=== PATIENT | female | born 1975 | race Caucasian/White ===

== ENCOUNTER 2023-01-17 18:36 | Emergency (ER) | payer MEDICAID, SELFPAY ==
[2023-01-17 18:47] VITALS: BP 118/99; PULSE 89; RESP 18; TEMP 36.8; O2SAT 99
--- NOTE | 2023-01-17 18:48 | ED_ITS ---
HPI - General Adult General Chief complaint: Wound/Laceration <Wesly Bateman - Last Filed: 01/17/23 18:49> Stated complaint: laceration left hand <Wesly Bateman - Last Filed: 01/17/23 18:49> Time Seen by Provider: 01/17/23 21:06 <Wesly Bateman - Last Filed: 01/17/23 18:49> Source: patient <ELIA Monge Last Filed: 01/18/23 01:38> Mode of arrival: ambulatory <ELIA oMnge - Last Filed: 01/18/23 01:38> Limitations: no limitations <ELIA Monge Last Filed: 01/18/23 01:38> History of Present Illness HPI narrative: 47 yold female presents to the ED for left hand laceration since yesterday. patient states she cut hand with a knife while cooking. Patient denies any numbness, tingling, or paralysis of extremity thumb. patient unknown when last she had tetanus. <ELIA Monge Last Filed: 01/18/23 01:38> Related Data Allergies/adverse reactions: Allergies Allergy/AdvReac Type Severity Reaction Status Date / Time No Known Allergies Allergy Unverified 05/29/20 19:43 [No Known Allergies*] <Wesly Bateman - Last Filed: 01/17/23 18:49> Review of Systems Review of Systems: left hand laceration <ELIA Monge Last Filed: 01/18/23 01:38> Yes all other systems are reviewed and are negative <ELIA Monge Last Filed: 01/18/23 01:38> FOR[facility]LY [facility] Social History Social History: Social History Advance Directives: No Advance Directives Information Provided: No <Wesly Campos Last Filed: 01/17/23 18:49> Physical Exam ED Vital Signs: Vital Signs - 24 hr 01/17/23 18:47 Temperature 98.3 F Pulse Rate 89 Respiratory Rate 18 Blood Pressure 118/99 H Pulse Oximetry 99 Oxygen Delivery Method Room Air BMI result Body Mass Index 30.0 <Wesly Bateman - Last Filed: 01/17/23 18:49> Vital Signs - 24 hr 01/17/23 18:47 Temperature 98.3 F Pulse Rate 89 Respiratory Rate 18 Blood Pressure 118/99 H Pulse Oximetry 99 Oxygen Delivery Method Room Air BMI result Body Mass Index 30.0 <ELIA Monge Last Filed: 01/18/23 01:38> Const General: cooperative, healthy appearing, comfortable, no acute distress, well developed, alert, awake and Physically active <ELIA Monge Andres Last Filed: 01/18/23 01:38> Orientation/consciousness: oriented to person, oriented to place, oriented to time and patient oriented x3 <ELIA Monge Andres Last Filed: 01/18/23 01:38> HENMT Head: Yes normal to inspection, Yes No palpable skull fracture present, Yes normocephalic, Yes atraumatic and No abrasion <ELIA Monge Last Filed: 01/18/23 01:38> Eyes General: appearance normal, both eyes and all related structures <ELIA Monge Andres Last Filed: 01/18/23 01:38> Neck Neck: Yes normal visual inspection, Yes full ROM, Yes no lymphadenopathy, Yes no meningeal signs, Yes trachea midline, Yes supple, No anterior neck swelling and No tender <ELIA Monge Andres Last Filed: 01/18/23 01:38> Chest Chest palpation & inspection: normal inspection of the chest and normal palpation of entire chest wall <ELIA Monge Andres Last Filed: 01/18/23 01:38> Resp Effort & Inspection: normal respiratory effort and able to speak in complete sentences <ELIA Monge Andres Filed: 01/18/23 01:38> Auscultation: clear to auscultation bilaterally <ELIA Monge Andres Last Filed: 01/18/23 01:38> Cardio Jugular venous distension: no JVD <ELIA Monge Last Filed: 01/18/23 01:38> Heart sounds: S1 normal heart sound present and S2 normal heart sound present <ELIA Monge Andres Last Filed: 01/18/23 01:38> GI Inspection: Yes normal to inspection and No abdominal wall ecchymosis <ELIA Monge Andres Last Filed: 01/18/23 01:38> Palpation (GI): Soft to palpation, not firm, nontender, no guarding and not rigid <ELIA Monge Last Filed: 01/18/23 01:38> General: No CVA tenderness and Yes no CVA tenderness <ELIA Monge Last Filed: 01/18/23 01:38> Back/Spine/Pelvis Back: no CVA tenderness, No CVA tenderness and No back tenderness <ELIA Monge Last Filed: 01/18/23 01:38> Skin General skin exam: no rashes or lesions noted and elasticity normal <ELIA Monge Last Filed: 01/18/23 01:38> Neuro General: oriented to person, oriented to place, oriented to time, patient oriented x3, gait normal, tone normal, moves all extremities, Normal light touch and pain sensation, no meningeal signs, no focal motor deficits, CN's II-XI intact bilaterally and normal sensation to monofilament <ELAI Monge Last Filed: 01/18/23 01:38> Extrem General: Yes normal to inspection and Yes full ROM <ELIA Monge Last Filed: 01/18/23 01:38> Hand/finger images: 1. small laceration. patient has complete range of motion of all fingers. capillary refill intact of all fingers. motor, neuro, and vascular exam of extremity is intact. negative for signs of nerve or tendon injury <Wesly Bateman - Last Filed: 01/17/23 18:49> 1. small laceration. patient has complete range of motion of all fingers. capillary refill intact of all fingers. motor, neuro, and vascular exam of extremity is intact. negative for signs of nerve or tendon injury <ELIA Monge Last Filed: 01/18/23 01:38> Psych Appearance: grossly normal, well kempt and not disheveled <ELIA Monge Last Filed: 01/18/23 01:38> Course Course Course Narrative: 47 year old female presents for evaluation of a curvilinear your left hand laceration approximately 2 cm full-thickness <Wesly Bateman - Last Filed: 01/17/23 18:49> Reevaluation(s) Reevaluation #1: Wound cleaned with sterile saline, pivodine iodine, and anesthesized with 6ml of lidoaine 1%. size 3 nylon suture used and 3 sutures were placed. Tdap ordered <ELIA Monge - Last Filed: 01/18/23 01:38> Time: 22:19 <ELIA Monge - Last Filed: 01/18/23 01:38> Medications Administered Discontinued Medications Generic Name Dose Route Start Last Admin Trade Name Freq PRN Reason Stop Dose Admin Diphtheria/Tetanus/Acell Pertussis 0.5 ml 01/17/23 21:34 01/17/23 22:31 Diphth,Pertus(Acell),Tet Adult 0.5 Ml Syringe IM 01/17/23 21:35 0.5 ml .ONCE ONE Administration Lidocaine HCl 2 ml 01/17/23 21:30 01/17/23 22:30 Lidocaine Hcl 1 % Mpf 2 Ml Vial INFILTRATI 01/17/23 21:31 2 ml ONCE ONE Administration Lidocaine HCl 2 ml 01/17/23 21:30 01/17/23 22:30 Lidocaine Hcl 1 % Mpf 2 Ml Vial INFILTRATI 01/17/23 21:31 2 ml ONCE ONE Administration Lidocaine HCl 2 ml 01/17/23 21:30 01/17/23 22:30 Lidocaine Hcl 1 % Mpf 2 Ml Vial INFILTRATI 01/17/23 21:31 2 ml ONCE ONE Administration Lidocaine HCl 2 ml 01/17/23 21:34 01/17/23 22:31 Lidocaine Hcl 1 % Mpf 2 Ml Vial INFILTRATI 01/17/23 21:35 2 ml ONCE ONE Administration <Wesly Bateman - Last Filed: 01/17/23 18:49> Medications Administered Discontinued Medications Generic Name Dose Route Start Last Admin Trade Name Freq PRN Reason Stop Dose Admin Diphtheria/Tetanus/Acell Pertussis 0.5 ml 01/17/23 21:34 01/17/23 22:31 Diphth,Pertus(Acell),Tet Adult 0.5 Ml Syringe IM 01/17/23 21:35 0.5 ml .ONCE ONE Administration Lidocaine HCl 2 ml 01/17/23 21:30 01/17/23 22:30 Lidocaine Hcl 1 % Mpf 2 Ml Vial INFILTRATI 01/17/23 21:31 2 ml ONCE ONE Administration Lidocaine HCl 2 ml 01/17/23 21:30 01/17/23 22:30 Lidocaine Hcl 1 % Mpf 2 Ml Vial INFILTRATI 01/17/23 21:31 2 ml ONCE ONE Administration Lidocaine HCl 2 ml 01/17/23 21:30 01/17/23 22:30 Lidocaine Hcl 1 % Mpf 2 Ml Vial INFILTRATI 01/17/23 21:31 2 ml ONCE ONE Administration Lidocaine HCl 2 ml 01/17/23 21:34 01/17/23 22:31 Lidocaine Hcl 1 % Mpf 2 Ml Vial INFILTRATI 01/17/23 21:35 2 ml ONCE ONE Administration <ELIA Monge - Last Filed: 01/18/23 01:38> Medical Decision Making Medical Decision Making MDM Narrative: 47-year-old female with left hand laceration. Negative for signs of nerve or tendon injury. Negative for signs of vascular compromise of extremity. Wound clean with sterile saline Betadine iodine. Laceration repaired. Patient given tetanus <ELIA Monge Last Filed: 01/18/23 01:38> Differential Diagnosis Differential Diagnoses: The differential diagnosis associated with the presentation includes ( laceration, tendon/nerve injury, amputation,) <ELIA Monge - Last Filed: 01/18/23 01:38> Discharge Plan Discharge Clinical Impression: Laceration <Wesly Bateman - Last Filed: 01/17/23 18:49> Patient Disposition: Home, Self-Care <Wesly Bateman - Last Filed: 01/17/23 18:49> Instructions: Laceration (ED) <Wesly Bateman - Last Filed: 01/17/23 18:49> Additional Instructions: Return to the ED for any swelling, redness, fever, chills, pus discharge, inablity to move fingers, or any other concerning symptoms. Please follow up with PCP. Sutures should be removed in 10 days. <Wesly Bateman - Last Filed: 01/17/23 18:49> Stand Alone Forms: Work/School Release <Wesly Bateman - Last Filed: 01/17/23 18:49> Interventions: ED Discharge Assessment Last Done: 01/17/23 22:35 <Wesly Bateman - Last Filed: 01/17/23 18:49> Discharge Date/Time: 01/17/23 22:35 <Wesly Bateman - Last Filed: 01/17/23 18:49> Print Language: [place]i <Wesly Bateman - Last Filed: 01/17/23 18:49>
[2023-01-17] MEDS: Lidocaine HCl 1 % MPF 2 ML VIAL INFILTRATI ×4 (22:30→22:31)
[2023-01-17] MEDS: Diphth,Pertus(ACell),Tet Adult 0.5 ML SYRINGE IM (22:31)
== END 2023-01-17 22:35 | disposition home or self-care (01) ==
PROVIDERS: Emergency Provider Internal Medicine; PCP Nurse Practitioner Family
DX: S61.412A Laceration without foreign body of left hand, initial encounter (principal); S60.512A Abrasion of left hand, initial encounter; W26.0XXA Contact with knife, initial encounter; Y93.9 Activity, unspecified; Y92.9 Unspecified place or not applicable; Y99.9 Unspecified external cause status; Z23 Encounter for immunization
CPT/HCPCS: 12001; 90471; 90715; 99282; 99284